=== PATIENT | male | born 1995 | race Caucasian/White ===

== ENCOUNTER 2018-07-02 23:08 | Emergency (ER) | payer OTHER ==
[~2018-07-02] VITALS: Ht 182.9 cm; Wt 96.6 kg
[2018-07-02 23:19] VITALS: Ht 182.9 cm; Wt 96.6 kg
[2018-07-03 00:09] LABS: BASOPHIL % 0.4 % (0-2); PLATELET COUNT 262 x10^3mcL (130-400); RED CELL DISTRIBUTION WIDTH 11.7 % (11.5-14.5)
[2018-07-03 00:22] LABS: CALCIUM 8.7 mg/dL (8.5-10.1); CARBON DIOXIDE 25.3 mmol/L (21-32); CHLORIDE SERUM 104 mmol/L (98-107); CREATININE SERUM 0.8 mg/dL (0.7-1.3); GFR1 > 60 mL/min; GLUCOSE SERUM 92 mg/dL (74-106); POTASSIUM SERUM 3.5 mmol/L (3.5-5.1); SODIUM SERUM 137 mmol/L (136-145)
[2018-07-03 00:26] LABS: ALBUMIN 4.1 g/dL (3.4-5.0); ALKALINE PHOSPHATASE 134 U/L (46-116); ALT/SGPT 25 U/L (16-63); AST/SGOT 17 U/L (15-37); BILIRUBIN TOTAL 0.3 mg/dL (0.20-1.00); TOTAL PROTEIN, SERUM 7.8 g/dL (6.4-8.2)
[2018-07-03 01:45] LABS: microscopic required? NO
[2018-07-03 02:02] LABS: UA SPECIFIC GRAVITY 1.015 (1.005-1.035); urine erythrocyte NEGATIVE (NEGATIVE)
[2018-07-03 02:08] LABS: AMPHETAMINE QUAL UR NONE DETECTED (See below)
[2018-07-03 05:43] LABS: APPEARANCE CSF HAZY; COLOR CSF PINK
[2018-07-03 05:44] LABS: COLOR CSF COLORLESS; RBC CSF 100 /cumm (0); WBC CSF 3 /cumm (0-5)
[2018-07-03 05:45] LABS: APPEARANCE CSF CLEAR; RBC CSF 3 /cumm (0); WBC CSF 3 /cumm (0-5)
[2018-07-03 06:00] LABS: TOTAL PROTEIN CSF 42.7 mg/dL (15-45)
[2018-07-03 06:08] VITALS: BP 120/58
== END 2018-07-03 06:08 | disposition home or self-care (01) ==
LOC: ED 23:08
PROVIDERS: Emergency Medicine
DX: R51 Headache (principal)
CPT/HCPCS: J1100; J2001; J2270; J2765

== ENCOUNTER 2019-10-16 00:09 | Emergency (ER) | payer SELFPAY ==
[~2019-10-16] VITALS: Ht 182.9 cm; Wt 104.3 kg
[2019-10-16 00:18] VITALS: Ht 182.9 cm; Wt 104.3 kg
[2019-10-16 01:03] LABS: BASOPHIL % 0.4 % (0-2); PLATELET COUNT 272 x10^3mcL (130-400); RED CELL DISTRIBUTION WIDTH 12.5 % (11.5-14.5)
[2019-10-16 01:09] LABS: CALCIUM 7.6 mg/dL (8.5-10.1); CARBON DIOXIDE 19.6 mmol/L (21-32); CHLORIDE SERUM 112 mmol/L (98-107); CREATININE SERUM 0.7 mg/dL (0.7-1.3); GFR1 > 60 mL/min; GLUCOSE SERUM 96 mg/dL (74-106); POTASSIUM SERUM 3.4 mmol/L (3.5-5.1); SODIUM SERUM 145 mmol/L (136-145)
[2019-10-16 01:14] LABS: ALBUMIN 3.4 g/dL (3.4-5.0); ALKALINE PHOSPHATASE 133 U/L (46-116); ALT/SGPT 40 U/L (16-63); AST/SGOT 19 U/L (15-37); BILIRUBIN TOTAL 0.2 mg/dL (0.20-1.00); TOTAL PROTEIN, SERUM 6.6 g/dL (6.4-8.2)
[2019-10-16 02:07] LABS: AMPHETAMINE QUAL UR NONE DETECTED (See below)
[2019-10-16 04:05] VITALS: BP 98/53
== END 2019-10-16 04:08 | disposition home or self-care (01) ==
LOC: ED 00:09
PROVIDERS: Emergency Medicine
DX: F10.129 Alcohol abuse with intoxication, unspecified (principal); R11.10 Vomiting, unspecified
CPT/HCPCS: G0480; J2405; J7030